=== PATIENT | female | born 1960 | race African-American/Black ===

== ENCOUNTER → 2017-06-06 | Outpatient (CLI) | payer OTHER ==
--- NOTE | 2017-06-12 16:28 | MG ---
HISTORY: SCREENING Comparison: None FINDINGS: Bilateral CC and MLO projections of the right and left breast were obtained. Scattered fibroglandul ar tissue is seen to be present. No significant architectural distortion, mass or clustered microca lcifications can be observed to suggest malignancy. No skin thickening or nipple retraction is appr eciated. No pathological lymphadenopathy can be identified. IMPRESSION: NO RADIOGRAPHIC EVIDENCE OF MALIGNANCY. ACR CATEGORY I - NEGATIVE EXAM. FOLLOW-UP EXAM 1 YEAR. Diagnostic CAD was utilized and reviewed. * 0 (ZERO) - ASSESSMENT INCOMPLETE; ADDITIONAL IMAGING IS NEEDED. * 1/ (ONE) - NEGATIVE. * 2/II (TWO) - BENIGN FINDINGS. * 3/III (THREE) - PROBABLY BENIGN FINDING; SHORT INTERVAL FOLLOW-UP SUGGESTED. * 4/IV (FOUR) - SUSPICIOUS ABNORMALITY; BIOPSY SHOULD BE CONSIDERED. * 5/V (FIVE) - HIGHLY SUSPICIOUS OF MALIGNANCY; BIOPSY SHOULD BE PERFORMED. A NEGATIVE X-RAY REPORT SHOULD NOT DELAY BIOPSY IF A DOMINANT OR CLINICALLY SUSPICIOUS MASS IS PRESENT; 4 TO 8 PERCENT OF CANCERS ARE NOT IDENTIFIED BY X-RAY. A NEG ATIVE REPORT MAY REINFORCE THE CLINICAL IMPRESSION. ADENOSIS AND DENSE BREASTS MAY OBSCURE AN UNDER LYING NEOPLASM. Reported By:
== END ==
LOC: RAD 08:36
PROVIDERS: ATTEND Internal Medicine
DX: Z12.31 Encounter for screening mammogram for malignant neoplasm of breast (principal)
CPT/HCPCS: 77067

== ENCOUNTER → 2018-02-21 | Outpatient (CLI) | payer OTHER, MEDICAID ==
--- NOTE | 2018-02-21 13:01 | RAD ---
HISTORY: Neck pain. No history of trauma. Study: AP and lateral cervical spine Comparison: None Findings: The lateral view demonstrates loss of normal cervical lordosis. There is 2-3 mm of retrolisthesis of C5 on C6. Moderate disc space narrowing is noted at C5/C6 with mild at C6/C7. Small anterior spurs are present at multiple levels. Prevertebral soft tissues are normal. Pre odontoid space is normal . The posterior elements are intact. Minimal facet arthropathy and uncovertebral joint arthropathy is noted. The lateral masses C1 are symmetric about the lateral masses of C2 and the odontoid proces s. IMPRESSION: 1. Cervical spondylosis as described above. 2. Loss of normal cervical lordosis which may be seen in normal individuals, be positional or second sandeep to muscle spasm. 3. No acute bony abnormalities are identified. Reported By:
--- NOTE | 2018-02-21 13:05 | RAD ---
HISTORY: Shoulder pain Study: Left shoulder: Three views Comparison: 03/03/2015 Findings: Mild degenerative changes present at the rotator cuff insertion. Minimal acromioclavicular joint hyp ertrophy is noted. Minimal subacromial spurring is noted. Early degenerative changes noted in the g lenohumeral joint. No acute bony or joint abnormalities are identified. IMPRESSION: 1. Degenerative change in the left shoulder described above. There has been slight progression when compared to the prior examination. 2. No acute bony abnormalities are identified. Reported By:
== END | disposition home or self-care (01) | DRG 556 ==
LOC: RAD 11:12
PROVIDERS: ATTEND Internal Medicine
DX: M25.512 Pain in left shoulder (principal); M54.2 Cervicalgia; M19.012 Primary osteoarthritis, left shoulder; M47.892 Other spondylosis, cervical region
CPT/HCPCS: 72040; 73030